=== PATIENT | female | born 1960 | race African-American/Black ===

== ENCOUNTER 2020-03-24 07:26 | Outpatient (CLI) | payer OTHER ==
--- NOTE | 2020-03-24 08:30 | CT ---
CT ABDOMEN PELVIS WITH IV CONTRAST: HISTORY: Abdominal hernia. COMPARISON: 10/25/2019 FINDINGS: The lung bases are clear. No calcified gallstones are seen. There is a tiny calcified granuloma in th e liver. The spleen, pancreas, adrenal glands and kidneys are normal. No free air, free fluid or lymphadenopathy seen in the abdomen or pelvis. There are ventral hernias in the anterior abdominal wall containing nonobstructing loops of small bow el. The largest of these has a neck diameter of 10.7 cm. There is no evidence of aneurysmal dilatation of the abdominal aorta. There are degenerative changes in the spine. The patient is post hysterectomy. IMPRESSION: Ventral hernias containing nonobstructing loops of small bowel.
[2020-03-24] MEDS ORDERED: Iopamidol 370 76% 100 ML VIAL ONE (10:42)
== END 2020-03-24 07:27 | disposition home or self-care (01) ==
LOC: BICCT 07:26
PROVIDERS: ATTEND Specialist
DX: K43.9 Ventral hernia without obstruction or gangrene (principal)
CPT/HCPCS: 74177; 82565; Q9967

== ENCOUNTER 2020-04-10 11:00 | Outpatient (CLI) | payer OTHER | END 2020-04-10 11:01 | disposition home or self-care (01) | LOC: DTY/OP 11:00 | PROVIDERS: ATTEND Specialist | DX: Z01.818 Encounter for other preprocedural examination (principal); K46.9 Unspecified abdominal hernia without obstruction or gangrene; K45.0 Other specified abdominal hernia with obstruction, without gangrene; E66.01 Morbid (severe) obesity due to excess calories | CPT/HCPCS: 97802 ==

== ENCOUNTER 2021-04-22 08:46 | Outpatient (CLI) | payer OTHER | END 2021-04-22 08:47 | disposition home or self-care (01) | LOC: DTY/OP 08:46 | PROVIDERS: ATTEND Specialist | DX: Z01.818 Encounter for other preprocedural examination (principal); K46.9 Unspecified abdominal hernia without obstruction or gangrene; K45.0 Other specified abdominal hernia with obstruction, without gangrene; E66.01 Morbid (severe) obesity due to excess calories | CPT/HCPCS: 97802 ==